=== PATIENT | male | born 1970 | race Caucasian/White ===

== ENCOUNTER 2016-09-06 10:45 | Emergency (ER) | payer SELFPAY ==
[2016-09-06] MEDS ORDERED: Ondansetron ODT 4 MG TAB ONE (11:12)
[2016-09-06] MEDS ORDERED: cloNIDine HCl 0.1 MG TAB ONE (11:12)
--- NOTE | 2016-09-06 11:28 | ERRECORD ---
[facility] EMERGENCY RECORD HPI NAUSEA/VOMITING/DIARRHEA (11:15 LHOD) CHIEF COMPLAINT: Patient presents for evaluation of nausea, Patient presents for evaluation of vomiting. HISTORIAN: History provided by patient. TIME COURSE: , SPOUSE WITH PT REPORTS HE FELL 20 FEET OFF A ROOF, WAS SEEN AT [facility] WHERE HE WAS DIAGNOSED WITH A PELVIC FRACTURE. HE DENIES HE WAS HOSPITALIZED. SINCE THEN OFF AND ON HE HAS HAD HEADACHES, NAUSEA AND TODAY VOMITING. PT REPORTS HX OF HTN, BUT HAS BEEN OFF MEDS FOR 1 YEAR. PT DENIES QUINTEROS AT PRESENT. REPORTS HE LAST TOOK TYLENOL #3 2 DAYS AGO. ROS (11:17 LHOD) CONSTITUTIONAL: Historian denies fever. CARDIOVASCULAR: Historian denies chest pain. RESPIRATORY: Historian denies shortness of breath. GI: Historian denies abdominal pain, denies diarrhea, reports nausea, reports vomiting. GENITOURINARY MALE: Historian denies hematuria. MUSCULOSKELETAL: Historian denies back pain, denies neck pain. REPORTS "TAILBONE HURTS". SKIN: Historian denies rash, NO OPEN WOUNDS. NEUROLOGIC: Historian reports headache, DENIES QUINTEROS AT PRESENT. HEMO/LYMPHATIC: Historian denies easy bruising. NOTES: All systems reviewed, negative except as described above. PAST MEDICAL HISTORY MEDICAL HISTORY: Flu vaccine not up to date, Past medical history includes history of hypertension, Patient is compliant, Past medical history includes pulmonary disease, asthma. (10:58 SFRE) MALE SURGICAL HISTORY: MULTIPLE ORTHOPEDIC SURGERIES FROM 20 FOOT FALL YEARS AGO, Surgical history of orthopedic surgery. (10:58 SFRE) PSYCHIATRIC HISTORY: Psychiatric history includes, bipolar disorder. (10:58 SFRE) SOCIAL HISTORY: Patient drinks socially, every week, Patient is a former drug user, abused marijuana, abused methamphetamines, Patient currently uses tobacco, smokes cigarettes. (10:58 SFRE) NOTES: Nursing records reviewed. (11:20 LHOD) KNOWN ALLERGIES Penicillins CURRENT MEDICATIONS (10:55 SFRE) None VITAL SIGNS (10:52 SFRE) VITAL SIGNS: BP: 153/116, Pulse: 104 (Regular), Resp: 18 &a-1R&a+25V*p+0X*x1771O*c202B*c15G*c2P*p-0X&a-25V&a+1R Name: Sina Hernandez : 1970 M46 MedRec: [id number] AcctNum: [id number] Prepared: FriSep 06, 2016 14:08 by Interface Page 1 of 3 pMD [facility] EMERGENCY RECORD (Non-Labored), Temp: 97.6 (Tympanic), Pain: 0, O2 sat: 99 on Room Air, Time: 09/06/2016 10:52. PHYSICAL EXAM (11:18 LHOD) CONSTITUTIONAL: Vital signs reviewed, Patient afebrile, Pulse, tachycardic, 104, Blood pressure, hypertensive, 153/116, Respiratory rate normal, Patient appears non toxic, Patient alert and oriented to person, place and time. HEAD: Head exam included findings of head atraumatic. EYES: Pupils equally round and reactive to light, Extraocular muscles intact, Eye exam included findings of anterior chamber clear. ENT: Ear exam normal, Pharynx exam normal. NECK: Neck exam included findings of normal range of motion, Trachea midline. RESPIRATORY CHEST: Respiratory exam included findings of no respiratory distress, Breath sounds clear. CARDIOVASCULAR: Cardiovascular exam included findings of heart rate regular rate and rhythm, Heart sounds normal. ABDOMEN MALE: Abdominal exam included findings of abdomen nontender, Distension present. BACK: Back exam included findings of normal inspection, range of motion normal. UPPER EXTREMITY: Upper extremity exam normal. LOWER EXTREMITY: RIGHT ANKLE---MILD LATERAL ANKLE SOFT TISSUE SWELLING WITHOUT BRUISING OR POINT TENDERNESS. NEURO: Neuro exam findings include patient oriented to person, place and time, Speech normal, Memory normal, Cranial nerves intact, no focal motor deficits, no focal sensory deficits, no cerebellar deficits, no nystagmus. SKIN: no rash. MEDICATION ADMINISTRATION SUMMARY Drug Name: Zofran ODT, Dose Ordered: 8 mg, Route: Oral, Status: Given, Time: 11:16 09/06/2016, Drug Name: cloNIDine HCl, Dose Ordered: 0.1 mg, Route: Oral, Status: Given, Time: :16 09/06/2016, Detailed record available in Medication Service section. DOCTOR NOTES (11:20 LHOD) TEXT: NO EVIDENCE OF SUBARCHNOID HEMORRHAGE, CVA, MENINGITIS, OR CARDIOVASCULAR INSTABILITY. PT IS ADVISED IBUPROFEN HE TAKES CAN UPSET HIS STOMACH, BUT ALSO CAUSE FLUID RETENTION, SO MAY BE WORSENING HIS HTN. OF THE 2 I ADVISED TAKING IBUPROFEN RATHER THAN TYLENOL #3, IF POSSIBLE, BUT BOTH CAN CAUSE NAUSEA. PROBLEM LIST No recorded problems &a-1R&a+25V*p+0X*n1676E*c202B*c15G*c2P*p-0X&a-25V&a+1R Name: Sina Hernandez : 1970 M46 MedRec: [id number] AcctNum: [id number] Prepared: FriSep 06, 2016 14:08 by Interface Page 2 of 3 pMD [facility] EMERGENCY RECORD DIAGNOSIS (11:10 LHOD) FINAL: PRIMARY: HYPERTENSION---LABILE, ADDITIONAL: CEPHALGIA POSSIBLY RELATED TO HYPERTENSION, NAUSEA. PRESCRIPTION hydrochlorothiazide: CAPSULE : 12.5 mg : ORAL : Quantity: 1 Unit: tab(s) Route: ORAL Schedule: once a day (in the morning) Dispense: 30 May substitute. Refills: No Refills . (11:11 LHOD) NOTES: No Refills. (11:11 LHOD) lisinopril: TABLET : 20 mg : ORAL : Quantity: 1 Unit: tab(s) Route: ORAL Schedule: once a day (in the morning) Dispense: 30 May substitute. Refills: No Refills . (11:11 LHOD) NOTES: No Refills. (11:11 LHOD) Zofran ODT: TABLET, RAPID DISSOLVE : 8 mg : ORAL : Quantity: 1 Unit: tab(s) Route: ORAL Schedule: every 6 hours PRN Dispense: 4 May substitute. Refills: 1 . (11:12 LHOD) NOTES: No Refills. (11:12 LHOD) DISPOSITION PATIENT: Disposition Type: Discharge, Disposition: *Discharge Home, Condition: Good. (11:10 LHOD) Patient left the department. (11:24 SFRE) Ruiz: LHOD=MD Jameson, Dany SFRE=PATRICIA Arias, Jennifer &a-1R&a+25V*p+0X*f4165D*c202B*c15G*c2P*p-0X&a-25V&a+1R Name: Sina Hernandez Abigail : 1970 M46 MedRec: [id number] AcctNum: [id number] Prepared: FriSep 06, 2016 14:08 by Interface Page 3 of 3 pMD MTDD
--- NOTE | 2016-09-06 11:34 | PICIS ---
[facility] EMERGENCY RECORD TRIAGE (FriSep 06, 2016 10:55 SFRE) TRIAGE NOTES: NAUSEA, HEADAHCE AND ELEVATED BP. HAS HAD NO BP MEDICINES FOR A YEAR. (FriSep 06, 2016 10:55 SFRE) PATIENT: NAME: Sina Hernandez, AGE: 46, GENDER: male, : Sat 1970, TIME OF GREET: FriSep 06, 2016 10:46, PREFERRED LANGUAGE: Macedonian, ETHNICITY: Not or , ECODE BILLING MAP: [facility], SSN: [id number], Zip Code: [address], KG WEIGHT: 83.91, PHONE: , , , PERSON ID: [id number], PCP: NO PCP. (FriSep 06, 2016 10:55 SFRE) COMPLAINT: NAUSEA / VOMITTING. (FriSep 06, 2016 10:55 SFRE) ADMISSION: URGENCY: 4 Non Urgent, ADMISSION SOURCE: Home, TRANSPORT: Walk-in, BED: ED -03. (FriSep 06, 2016 10:55 SFRE) IMMUNIZATIONS: Flu vaccine not up to date. (10:58 SFRE) TRIAGE SCREENING: Patient denies suicidal ideation, Patient denies presence of domestic violence. (10:58 SFRE) PROVIDERS: TRIAGE NURSE: Jennifer Arias RN. (FriSep 06, 2016 10:55 SFRE) VITAL SIGNS: BP 153/116, Pulse 104, (Regular), Resp 18, (Non-Labored), Temp 97.6, (Tympanic), Pain 0, O2 Sat 99, on Room Air, Time 09/06/2016 10:52. (10:52 SFRE) KNOWN ALLERGIES Penicillins CURRENT MEDICATIONS (10:55 SFRE) None VITAL SIGNS (10:52 SFRE) VITAL SIGNS: BP: 153/116, Pulse: 104 (Regular), Resp: 18 (Non-Labored), Temp: 97.6 (Tympanic), Pain: 0, O2 sat: 99 on Room Air, Time: 09/06/2016 10:52. NURSING ASSESSMENT: ABDOMEN (11:07 SFRE) CONSTITUTIONAL: Patient arrives ambulatory, Gait steady, History obtained from patient, Patient appears comfortable, Patient cooperative, Patient alert, Oriented to person, place and time, Skin warm, Skin dry, Skin normal in color, Mucous membranes pink, Mucous membranes moist, Patient is well-groomed, Patient complains of NAUSEA, HEADACHE. PAIN: Patient rates pain as 0 out of 10, REPORTS TAKING AN ASA YESTERDAY WHICH HELPED WITH HEADACHE PAIN., Pain exacerbated by nothing, Pain relieved by, Aspirin. ABDOMEN: Abdomen assessment findings include abdomen symmetrical, Abdomen soft, non-tender, Bowel sound normal, Associated with nausea, Associated with vomiting, history of vomiting, STATES HE JUST HAS DRY HEAVES, no associated diarrhea, no associated constipation. GENITOURINARY MALE: no associated urinary complaints. SAFETY: Side rails up, Cart/Stretcher in lowest position, Family &a-1R&a+25V*p+0X*n5632L*c202B*c15G*c2P*p-0X&a-25V&a+1R Name: Sina Hernandez : 1970 M46 MedRec: [id number] AcctNum: [id number] Prepared: FriSep 06, 2016 14:14 by Interface Page 1 of 5 pMD [facility] EMERGENCY RECORD at bedside, Call light within reach, Hospital ID band on. NURSING PROCEDURE: DISCHARGE NOTE (11:21 SFRE) DISCHARGE: Patient discharged to home, ambulating without assistance, family driving, accompanied by //partner, Summary of Care printed/ provided, Patient requested and was provided an electronic copy of Discharge Instructions, Discharge instructions given to patient, Simple or moderate discharge teaching performed, by PATRICIA WADDELL, F/U WITH PCP. RX DIRECTED. RETURN TO ED NEEDED FOR NEW/CONCERNING OR WORSENING SYMPTOMS., Prescriptions given and instructions on side effects given, Name of prescription(s) given: HCTZ, LISINOPRIL, ZOFRAN, Above person(s) verbalized understanding of discharge instructions and follow-up care. NURSING PROCEDURE: NURSE NOTES (10:59 SFRE) NURSES NOTES: Patient examined by physician. MEDICATION ADMINISTRATION SUMMARY Drug Name: Zofran ODT, Dose Ordered: 8 mg, Route: Oral, Status: Given, Time: 11:16 09/06/2016, Drug Name: cloNIDine HCl, Dose Ordered: 0.1 mg, Route: Oral, Status: Given, Time: 11:16 09/06/2016, Detailed record available in Medication Service section. MEDICATION SERVICE (11:16 LHOD) cloNIDine HCl: Order: cloNIDine HCl (clonidine HCl) - Dose: 0.1 mg : Oral Ordered by: Dany Barba MD Entered by: Dany Barba MD FriSep 06, 2016 11:09 , Acknowledged by: Jennifer Arias RN FriSep 06, 2016 11:11 Documented as given by: Jennifer Arias RN FriSep 06, 2016 11:16 Patient, Medication, Dose, Route and Time verified prior to administration. Amount given: 0.1MG, Site: Medication administered P.O., Correct patient, time, route, dose and medication confirmed prior to administration, Patient advised of actions and side-effects prior to administration, Allergies confirmed and medications reviewed prior to administration, Patient in position of comfort, Side rails up, Cart in lowest position, Family at bedside. Zofran ODT: Order: Zofran ODT (ondansetron) - Dose: 8 mg : Oral Ordered by: Dany Barba MD Entered by: Dany Barba MD FriSep 06, 2016 11:08 , Acknowledged by: Jennifer Arias RN FriSep 06, 2016 11:11 Documented as given by: Jennifer Arias RN FriSep 06, 2016 11:16 Patient, Medication, Dose, Route and Time verified prior to administration. Amount given: 8MG, Site: Medication administered S.L., Correct patient, time, route, dose and medication confirmed prior to &a-1R&a+25V*p+0X*t7779S*c202B*c15G*c2P*p-0X&a-25V&a+1R Name: Sina Hernandez : 1970 M46 MedRec: [id number] AcctNum: [id number] Prepared: FriSep 06, 2016 14:14 by Interface Page 2 of 5 pMD [facility] EMERGENCY RECORD administration, Patient advised of actions and side-effects prior to administration, Allergies confirmed and medications reviewed prior to administration, Patient in position of comfort, Side rails up, Cart in lowest position, Family at bedside. HPI NAUSEA/VOMITING/DIARRHEA (11:15 LHOD) CHIEF COMPLAINT: Patient presents for evaluation of nausea, Patient presents for evaluation of vomiting. HISTORIAN: History provided by patient. TIME COURSE: , SPOUSE WITH PT REPORTS HE FELL 20 FEET OFF A ROOF, WAS SEEN AT [facility] WHERE HE WAS DIAGNOSED WITH A PELVIC FRACTURE. HE DENIES HE WAS HOSPITALIZED. SINCE THEN OFF AND ON HE HAS HAD HEADACHES, NAUSEA AND TODAY VOMITING. PT REPORTS HX OF HTN, BUT HAS BEEN OFF MEDS FOR 1 YEAR. PT DENIES QUINTEROS AT PRESENT. REPORTS HE LAST TOOK TYLENOL #3 2 DAYS AGO. ROS (11:17 LHOD) CONSTITUTIONAL: Historian denies fever. CARDIOVASCULAR: Historian denies chest pain. RESPIRATORY: Historian denies shortness of breath. GI: Historian denies abdominal pain, denies diarrhea, reports nausea, reports vomiting. GENITOURINARY MALE: Historian denies hematuria. MUSCULOSKELETAL: Historian denies back pain, denies neck pain. REPORTS "TAILBONE HURTS". SKIN: Historian denies rash, NO OPEN WOUNDS. NEUROLOGIC: Historian reports headache, DENIES QUINTEROS AT PRESENT. HEMO/LYMPHATIC: Historian denies easy bruising. NOTES: All systems reviewed, negative except as described above. PAST MEDICAL HISTORY MEDICAL HISTORY: Flu vaccine not up to date, Past medical history includes history of hypertension, Patient is compliant, Past medical history includes pulmonary disease, asthma. (10:58 SFRE) MALE SURGICAL HISTORY: MULTIPLE ORTHOPEDIC SURGERIES FROM 20 FOOT FALL YEARS AGO, Surgical history of orthopedic surgery. (10:58 SFRE) PSYCHIATRIC HISTORY: Psychiatric history includes, bipolar disorder. (10:58 SFRE) SOCIAL HISTORY: Patient drinks socially, every week, Patient is a former drug user, abused marijuana, abused methamphetamines, Patient currently uses tobacco, smokes cigarettes. (10:58 SFRE) NOTES: Nursing records reviewed. (11:20 LHOD) PHYSICAL EXAM (11:18 LHOD) CONSTITUTIONAL: Vital signs reviewed, Patient afebrile, Pulse, tachycardic, 104, Blood &a-1R&a+25V*p+0X*g5034P*c202B*c15G*c2P*p-0X&a-25V&a+1R Name: Sina Hernandez : 1970 M46 MedRec: [id number] AcctNum: [id number] Prepared: FriSep 06, 2016 14:14 by Interface Page 3 of 5 pMD [facility] EMERGENCY RECORD pressure, hypertensive, 153/116, Respiratory rate normal, Patient appears non toxic, Patient alert and oriented to person, place and time. HEAD: Head exam included findings of head atraumatic. EYES: Pupils equally round and reactive to light, Extraocular muscles intact, Eye exam included findings of anterior chamber clear. ENT: Ear exam normal, Pharynx exam normal. NECK: Neck exam included findings of normal range of motion, Trachea midline. RESPIRATORY CHEST: Respiratory exam included findings of no respiratory distress, Breath sounds clear. CARDIOVASCULAR: Cardiovascular exam included findings of heart rate regular rate and rhythm, Heart sounds normal. ABDOMEN MALE: Abdominal exam included findings of abdomen nontender, Distension present. BACK: Back exam included findings of normal inspection, range of motion normal. UPPER EXTREMITY: Upper extremity exam normal. LOWER EXTREMITY: RIGHT ANKLE---MILD LATERAL ANKLE SOFT TISSUE SWELLING WITHOUT BRUISING OR POINT TENDERNESS. NEURO: Neuro exam findings include patient oriented to person, place and time, Speech normal, Memory normal, Cranial nerves intact, no focal motor deficits, no focal sensory deficits, no cerebellar deficits, no nystagmus. SKIN: no rash. EVENTS TRANSFER: Triage to [facility] Main ED -03. (FriSep 06, 2016 10:55 SFRE) Removed from [facility] ED -03. (11:24 SFRE) DOCTOR NOTES (11:20 LHOD) TEXT: NO EVIDENCE OF SUBARCHNOID HEMORRHAGE, CVA, MENINGITIS, OR CARDIOVASCULAR INSTABILITY. PT IS ADVISED IBUPROFEN HE TAKES CAN UPSET HIS STOMACH, BUT ALSO CAUSE FLUID RETENTION, SO MAY BE WORSENING HIS HTN. OF THE 2 I ADVISED TAKING IBUPROFEN RATHER THAN TYLENOL #3, IF POSSIBLE, BUT BOTH CAN CAUSE NAUSEA. PROBLEM LIST No recorded problems DIAGNOSIS (11:10 LHOD) FINAL: PRIMARY: HYPERTENSION---LABILE, ADDITIONAL: CEPHALGIA POSSIBLY RELATED TO HYPERTENSION, NAUSEA. DISPOSITION PATIENT: Disposition Type: Discharge, Disposition: *Discharge Home, Condition: Good. (11:10 LHOD) Patient left the department. (11:24 SFRE) &a-1R&a+25V*p+0X*b0520Q*c202B*c15G*c2P*p-0X&a-25V&a+1R Name: Sina Hernandez Abigail : 1970 6 MedRec: [id number] AcctNum: [id number] Prepared: FriSep 06, 2016 14:14 by Interface Page 4 of 5 pMD [facility] EMERGENCY RECORD INSTRUCTION (11:13 OD) DISCHARGE: HYPERTENSION, ESTABLISHED. FOLLOWUP: Follow up with Primary Care Physician in 7 days. SPECIAL: CONTACT THE CLINIC OR A LOCAL PRIMARY CARE DOCTOR TODAY FOR FOLLOW UP IN THE COMING WEEK. TAKE OVER THE COUNTER PEPCID OR PRILOSEC WHILE TAKING IBUPROFEN. SOUPS / GATORADE UNTIL NAUSEA PASSES. *RETURN IF WORSE. PRESCRIPTION hydrochlorothiazide: CAPSULE : 12.5 mg : ORAL : Quantity: 1 Unit: tab(s) Route: ORAL Schedule: once a day (in the morning) Dispense: 30 May substitute. Refills: No Refills . (11:11 LHOD) NOTES: No Refills. (11:11 LHOD) lisinopril: TABLET : 20 mg : ORAL : Quantity: 1 Unit: tab(s) Route: ORAL Schedule: once a day (in the morning) Dispense: 30 May substitute. Refills: No Refills . (11:11 LHOD) NOTES: No Refills. (11:11 LHOD) Zofran ODT: TABLET, RAPID DISSOLVE : 8 mg : ORAL : Quantity: 1 Unit: tab(s) Route: ORAL Schedule: every 6 hours PRN Dispense: 4 May substitute. Refills: 1 . (11:12 LHOD) NOTES: No Refills. (11:12 LHOD) IMAGING (11:23 SFRE) *DISCHARGE INSTRUCTIONS RECEIPT: Image captured from scanner. *SUPPLY CHARGE SHEET: Image captured from scanner. ADMIN DIGITAL SIGNATURE: PATRICIA Arias Stacey. (11:24 SFRE) MD Barba Lefayne. (14:03 OD) Ruiz: LHOD=MD Barba Lefayne SFRE=PATRICIA Arias Stacey &a-1R&a+25V*p+0X*h3726I*c202B*c15G*c2P*p-0X&a-25V&a+1R Name: Sina Hernandez Abigail : 1970 M46 MedRec: [id number] AcctNum: [id number] Prepared: FriSep 06, 2016 14:14 by Interface Page 5 of 5 pMD MTDD
== END 2016-09-06 11:23 | disposition home or self-care (01) ==
LOC: MADERS 10:45
DX: I10 Essential (primary) hypertension (principal); J45.909 Unspecified asthma, uncomplicated; F31.9 Bipolar disorder, unspecified; F17.210 Nicotine dependence, cigarettes, uncomplicated
CPT/HCPCS: 99283; Q0162